=== PATIENT | male | born 1975 | race American Indian/Alaskan Native ===

== ENCOUNTER 2018-04-25 02:53 | Emergency (ER) | payer SELFPAY ==
[2018-04-25 03:04] VITALS: BP 164/94
--- NOTE | 2018-04-25 03:16 | Emergency Department Report ---
ED Male HPI - General Chief complaint: Urogenital-Male Stated complaint: STD EXPOSURE Time Seen by Provider: 04/25/18 03:11 Source: patient Mode of arrival: Ambulatory Limitations: No Limitations - History of Present Illness Initial comments: Patient is a 43-year-old -Turkmen male presents as my girlfriend states she has BV and outpatient treatment however patient denies symptoms no discharge no dysuria no frequency no urgency no open lesions no open sores, treated with Flagyl by mouth for BV patient to ensure that he does not have BV MD Complaint: other Onset/Timin (denies symptoms ) -: unknown Radiation: none, eyes Severity scale (0 -10): 0 Improves with: none Worsens with: none - Related Data Sexually active: Yes Allergies Allergy/AdvReac Type Severity Reaction Status Date / Time No Known Allergies Allergy Verified 04/25/18 03:04 ED Review of Systems ROS: Stated complaint: STD EXPOSURE Other details as noted in HPI Constitutional: denies: chills, fever Eyes: denies: eye pain, eye discharge, vision change ENT: denies: ear pain, throat pain Respiratory: denies: cough, shortness of breath, wheezing Cardiovascular: denies: chest pain, palpitations Endocrine: no symptoms reported Gastrointestinal: denies: abdominal pain, nausea, diarrhea Genitourinary: denies: urgency, dysuria Musculoskeletal: denies: back pain, joint swelling, arthralgia Skin: denies: rash, lesions Neurological: denies: headache, weakness, paresthesias Psychiatric: denies: anxiety, depression ED Past Medical Hx - Past Medical History Previous Medical History?: Yes Hx Diabetes: Yes - Surgical History Past Surgical History?: Yes Additional Surgical History: right hand and wrist - Social History Smoking Status: Current Every Day Smoker Substance Use Type: Alcohol ED Physical Exam - General Limitations: No Limitations General appearance: alert, in no apparent distress - Head Head exam: Present: atraumatic, normocephalic - Eye Eye exam: Present: normal appearance - ENT ENT exam: Present: mucous membranes moist - Neck Neck exam: Present: normal inspection - Respiratory Respiratory exam: Present: normal lung sounds bilaterally. Absent: respiratory distress - Cardiovascular Cardiovascular Exam: Present: regular rate, normal rhythm. Absent: systolic murmur, diastolic murmur, rubs, gallop - GI/Abdominal GI/Abdominal exam: Present: soft, normal bowel sounds - Rectal Rectal exam: Present: deferred - exam: Present: other (exam deferred per patient ) - Extremities Exam Extremities exam: Present: normal inspection - Back Exam Back exam: Present: normal inspection - Neurological Exam Neurological exam: Present: alert, oriented X3 - Psychiatric Psychiatric exam: Present: normal affect, normal mood - Skin Skin exam: Present: warm, dry, intact, normal color. Absent: rash ED Course Vital Signs 04/25/18 02:54 Temperature 98.7 F Pulse Rate 92 H Respiratory 18 Rate Blood Pressure 164/94 O2 Sat by Pulse 96 Oximetry ED Medical Decision Making - Lab Data Laboratory Tests 04/25/18 03:20 Urine Color Yellow Urine Turbidity Clear Urine pH 5.0 Ur Specific [place] 1.025 Urine Protein <15 mg/dl Urine Glucose (UA) Neg Urine Ketones Neg Urine Blood Neg Urine Nitrite Neg Urine Bilirubin Neg Urine Urobilinogen 2.0 Ur Leukocyte Esterase Neg Urine WBC (Auto) 1.0 Urine RBC (Auto) < 1.0 U Epithel Cells (Auto) < 1.0 Urine Mucus Few - Medical Decision Making UA normal patient advised to report the health Department for HSV and HIV screening was will advised if GC chlamydia cultures return positive pt verbalized agreement and understanding of same. Critical care attestation.: If time is entered above; I have spent that time in minutes in the direct care of this critically ill patient, excluding procedure time. ED Disposition Clinical Impression: Well adult health check Disposition: DC-01 TO HOME OR SELFCARE Is pt being admited?: No Does the pt Need Aspirin: No Condition: Good Instructions: Bacterial Vaginosis (ED) Additional Instructions: follow up with health department for HIV and HSV screening. Referrals: PRIMARY CARE, [Primary Care Provider] - 3-5 Days Forms: Work/School Release Form(ED) Time of Disposition: 03:55
[2018-04-25 03:27] LABS: Bilirubin,Urine NEG (Negative); Blood,Urine NEG (Negative); Color,Urine Yellow (Yellow); Mucus,Urine FEW /HPF; Protein,Urine <15 mg/dL mg/dL (Negative); RBC,Urine < 1.0 /HPF (0.0-6.0)
== END 2018-04-25 04:00 | disposition home or self-care (01) ==
LOC: ED 02:53
DX: Z00.00 Encounter for general adult medical examination without abnormal findings (principal); E11.9 Type 2 diabetes mellitus without complications; F17.200 Nicotine dependence, unspecified, uncomplicated
CPT/HCPCS: 81001; 99283

== ENCOUNTER 2019-09-01 05:50 | Emergency (ER) | payer SELFPAY ==
[2019-09-01 05:57] VITALS: BP 153/90
--- NOTE | 2019-09-01 06:55 | Emergency Department Report ---
Chief Complaint: Medical Clearance Stated Complaint: STD Time Seen by Provider: 09/01/19 06:49 - HPI History of Present Illness: 44-year-old -And[place] male presents to the emergency room wanting to be treated and tested for STD. Patient has no symptoms. - Exam Vital Signs: Vital Signs 09/01/19 05:54 Temperature 97.5 F L Pulse Rate 74 Respiratory 14 Rate Blood Pressure 153/90 O2 Sat by Pulse 99 Oximetry Physical Exam: alert and oriented 3 no acute distress nontoxic in appearance. Ambulatory without difficulties. MSE screening note: Focused history and physical exam performed. Due to findings the following was ordered: 44-year-old -[place] male presents to the emergency room wanting to be treated and tested for STD. Patient has no symptoms. Patient will be referred to health department. List given to patient. ED Disposition for MSE Disposition: MED SCREENING EXAM-LEFT Is pt being admited?: No Does the pt Need Aspirin: No Condition: Stable Referrals: [facility] [place] [Outside] - 3-5 Days [facility] [Outside] - 3-5 Days [facility] [Outside] - 3-5 Days [facility] [Outside] - 3-5 Days
== END 2019-09-01 07:15 | disposition left against medical advice (07) ==
LOC: ED 05:50
DX: A63.8 Other specified predominantly sexually transmitted diseases (principal)
CPT/HCPCS: 99281